=== PATIENT | female | born 1990 | race Hispanic/Latino ===

== ENCOUNTER 2018-03-26 14:12 | Emergency (ER) | payer OTHER ==
[~2018-03-26] VITALS: Ht 154.9 cm; Wt 77.6 kg
[~2018-03-26 14:12] MED LIST: FLEXERIL10 MG PO; MOTRIN600 MG PO
[2018-03-26 14:34] VITALS: BP 115/78
--- NOTE | 2018-03-26 14:40 | ED GI/GU/ABDOMINAL COMPLAINT ---
History of Present Illness General Chief Complaint: Female Urogenital Problems Stated Complaint: STD Source: patient Exam Limitations: no limitations Vital Signs & Intake/Output Vital Signs & Intake/Output ED Intake and Output 03/27 0000 03/26 1200 Intake Total Output Total Balance Patient 171 lb Weight Weight Reported by Patient Measurement Method Allergies Coded Allergies: NO KNOWN ALLERGIES (07/01/12) Reconcile Medications No Known Home Medications Triage Nurses Notes Reviewed? yes ? n Is pt currently ? No Onset: Gradual Duration: unknown duration HPI: 27yo female presents to ED requesting evaluation for STD. Patient states her OB/ HITCHER called her today to tell her she tested positive for gonorrhea. STILL OPERATOR referred her here to ED for medication. Patient is currently asymptomatic. Patient is sexually active with one partner. She denies fevers, chills, vomiting, vaginal discharge, urinary symptoms. (Marielena Monroe) Past History Travel History Traveled to [place] past 21 day No Medical History Any Pertinent Medical History? none Surgical History Surgical History: non-contributory Psychosocial History What is your primary language Thai Tobacco Use: Never used ETOH Use: denies use Illicit Drug Use: denies illicit drug use Family History Hx Contributory? No (Marielena Monroe) Review of Systems Review of Systems Constitutional: Reports: no symptoms. EENTM: Reports: no symptoms. Respiratory: Reports: no symptoms. Cardiovascular: Reports: no symptoms. GI: Reports: no symptoms. Genitourinary: Reports: see HPI. Musculoskeletal: Reports: no symptoms. Skin: Reports: no symptoms. Neurological/Psychological: Reports: no symptoms. Hematologic/Endocrine: Reports: no symptoms. Immunologic/Allergic: Reports: no symptoms. All Other Systems: Reviewed and Negative (Marielena Monroe) Physical Exam Physical Exam General Appearance: well developed/nourished, no apparent distress, alert, awake Head: atraumatic, normal appearance Eyes: Bilateral: normal appearance. Ears, Nose, Throat, Mouth: hearing grossly normal Neck: normal inspection, supple, full range of motion Respiratory: no respiratory distress Gastrointestinal: soft, non-tender Back: normal inspection, normal range of motion Extremities: normal range of motion Neurologic/Psych: awake, alert, oriented x 3 Skin: intact, normal color, warm/dry Core Measures ACS in differential dx? No Sepsis Present: No Sepsis Focused Exam Completed? No (Marielena Monroele) Progress Differential Diagnosis: PID/cervicitis, threatened AB, UTI/pyelo, STD Plan of Care: Current Medications Sig/[place] Start time Last Medication Dose Stop Time Status Admin Azithromycin 1,000 MG ONE ONE 03/26 1445 UNVr (Zithromax) 03/26 1446 Ceftriaxone Sodium 250 MG ONCE ONE 03/26 1445 UNVr (Rocephin) 03/26 1446 Patient was tested in her STILL OPERATOR's office and was called with a positive STD finding today. Patient medicated with azithromycin and ceftriaxone here in the emergency department. She was instructed to inform her sexual partners of positive STD test. She'll follow-up with her STILL OPERATOR. The patient agrees with the plan of care. Initial ED EKG: none (Yashira WELSH,Marielena Gillis) Departure Departure Disposition: HOME OR SELF CARE Condition: Stable Clinical Impression Primary Impression: Gonorrhea Referrals: José Antonio Crum APRN (PCP/Family) Additional Instructions: Inform your partners of your sexually transmitted infection. Refrain from unprotected sex for at least one week following treatment. All partners will need to be treated for STDs. Follow-up with the STILL OPERATOR. Return if worsening symptoms or concerns. Please note that there might be incidental findings in your evaluation that are unrelated to the current emergency department visit. Please notify your primary care doctor about this emergency department visit in order to obtain and review all of the testing performed so that these incidental findings can be monitored as needed. If you had an x-ray performed, please understand that some fractures may not be seen on the initial set of x-rays. If your symptoms persist you might need a repeat set of x-rays to check for such a fracture. If you had a laceration evaluated, please understand that foreign bodies such as glass or wood may not be visible to the naked eye or on plain x-rays. If the wound becomes red, swollen, increasingly more painful or if there is any drainage from the wound, please have it reevaluated by a physician for the possibility of a retained foreign body. If you're unable to follow up as outlined in the discharge instructions please return to the emergency department. Thank you for choosing the [facility] Emergency Department for your care. It was a pleasure to serve you today. Departure Forms: Customer Survey General Discharge Information Prescriptions: Current Visit Scripts No Known Home Medications (Yashira WELSH,Marielena Gillis) PA/SHRINK PIT SUPERVISOR Co-Sign Statement Statement: ED Attending supervision documentation- I saw and evaluated the patient. I have also reviewed all the pertinent lab results and diagnostic results. I agree with the findings and the plan of care as documented in the PA's/SHRINK PIT SUPERVISOR's documentation. x I have reviewed the ED Record and agree with the PA's/SHRINK PIT SUPERVISOR's documentation. [] Additions or exceptions (if any) to the PAs/SHRINK PIT SUPERVISOR's note and plan are summarized below: [] (Susannah GOMEZ,Marco)
== END 2018-03-26 15:03 ==
LOC: ERH 14:12
DX: A54.9 Gonococcal infection, unspecified (principal)
CPT/HCPCS: 96372; J0696